=== PATIENT | male | born 1990 | race Caucasian/White ===

== ENCOUNTER 2017-05-05 14:20 | Inpatient (IN) | payer OTHER ==
[~2017-05-05] VITALS: Ht 172.7 cm; Wt 84.4 kg
--- NOTE | 2017-05-05 14:48 | ED PSYCHIATRIC COMPLAINT ---
History of Present Illness General Chief Complaint: Psychiatric Related Complaint Stated Complaint: +SI PT INTOXICATED PER GIRLFRIEND Source: patient Exam Limitations: intoxication Allergies Coded Allergies: No Known Allergies (05/05/17) Reconcile Medications No Known Home Medications Triage Note: PT TO ED + ETOH, "3 BEERS, AND 1 PINT OF BOOZE, ALSO BEEN SHOOTING COCAINE, SMOKING CRACK". WHEN ASKED PT EXPRESSED HE WANTED DETOX. WHEN ASKED PT STATING SI THOUGHTS "WOULD PROBABLY JUST SHOOT UP". Triage Nurses Notes Reviewed? yes Onset: Abrupt Duration: day(s):, constant, continues in ED Timing: recent history Severity: mild, moderate HPI: 27-year-old male comes into emergency room for further evaluation of alcohol and cocaine abuse. Patient is been having suicidal ideation. Clinically intoxicated. Lives with a roommate. Denies only any weapons. Denies any pain currently. He reports that he is in "a very dark place at this time". (John LIPSCOMB,Fortunato) Vital Signs & Intake/Output Vital Signs & Intake/Output Vital Signs Date Time Temp Pulse Resp B/P B/P Pulse O2 O2 Flow FiO2 Mean Ox Delivery Rate 05/06 1623 84 144/67 05/06 1559 84 144/67 05/06 1231 Room Air Room Air 05/06 1217 97.9 82 139/60 05/06 1039 98.1 73 20 116/74 96 Room Air 05/06 1032 98.1 73 20 116/74 05/06 0535 97.1 89 18 118/64 05/06 0535 97.1 89 18 118/64 98 Room Air 05/06 0337 98.2 78 18 113/57 05/06 0336 98.2 78 18 113/57 99 Room Air 05/06 0122 98.3 77 18 110/63 05/06 0121 98.3 77 18 110/63 98 05/05 2319 98.5 83 18 122/86 05/05 2318 98.5 83 18 122/86 97 Room Air 05/05 2251 98.4 76 17 110/64 98 Room Air 05/05 2120 98.2 84 18 104/72 05/058 98.2 84 18 104/72 97 Room Air ED Intake and Output 05/06 0000 05/05 1200 Intake Total 0 Output Total Balance 0 Intake, IV 0 Patient 186 lb Weight Weight Reported by Patient Measurement Method (Cameron Skelton DO) Past History Travel History Traveled to [place] past 21 day No Medical History Any Pertinent Medical History? 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 No (Fortunato Chauhan) Surgical History Surgical History: non-contributory (Sukhjinder Chavira MD) Review of Systems Review of Systems Constitutional: Reports: no symptoms. EENTM: Reports: no symptoms. Respiratory: Reports: no symptoms. Cardiovascular: Reports: no symptoms. GI: Reports: no symptoms. Genitourinary: Reports: no symptoms. Musculoskeletal: Reports: no symptoms. Skin: Reports: no symptoms. Neurological/Psychological: Reports: see HPI. Hematologic/Endocrine: Reports: no symptoms. Immunologic/Allergic: Reports: no symptoms. All Other Systems: Reviewed and Negative (Fortunato Chauhan) Physical Exam Physical Exam General Appearance: well developed/nourished, mild distress, intoxicated Head: atraumatic Eyes: Bilateral: normal appearance. Ears, Nose, Throat: normal ENT inspection, hearing grossly normal Neck: normal inspection Respiratory: no respiratory distress Cardiovascular: regular rate/rhythm Extremities: normal range of motion Neurological/Psychiatric: awake, alert Appearance/Memory/Insight: disheveled, impaired insight Behavoir/Eye Contact/Speech: cooperative Thoughts/Hallucinations: no apparent hallucination Skin: intact, normal color, warm/dry (Fortunato Chauhan) SAD PERSONS SAD PERSONS Response Value Male Sex? yes 1 Depression/Hopelessness? yes 2 Previous Attempts/Psych Care yes 1 Excessive Ethanol/Drug Use? yes 1 Rational Thinking Loss? yes 2 Single//? yes 1 Organized/Serious Attempt yes 2 Social Support? has support 0 Stated Future Intent? yes 2 Total 12 SAD PERSONS Done? yes (Cameron Skelton DO) Progress Differential Diagnosis: dementia, drug intoxication, drug overdose, drug withdrawal, electrolyte abnormality, Depression, anxiety, PTSD, Plan of Care: Orders Procedure Date/time Status Regular Diet 05/06 L Active Vital Signs 05/06 1335 Complete Inpt Psych Teach/Educate 05/06 1335 Active Nutritional Intake, Monitor 05/06 1335 Active Inpt Psych Auricular Acupunctu 05/06 1335 Active Vital Signs 05/06 1150 Active Inpt Psych Teach/Educate 05/06 1150 Active Nutritional Intake, Monitor 05/06 1150 Active Inpt Psych Auricular Acupunctu 05/06 1150 Active Vital Signs 05/06 1146 Complete Teach/Educate 05/06 1146 Complete Pain Treatment and Response 05/06 1146 Complete Nutritional Intake, Monitor 05/06 1146 Complete Isolation 05/06 1146 Complete Intake & Output 05/06 1146 Complete Patient Care Conference 05/06 1146 Complete Activity/Ambulation 05/06 1146 Complete Admit to inpatient psych 05/06 1059 Active Lab Add-on Test 05/06 1050 Active EKG 05/06 1050 Active Pathway - chart 05/06 1049 Active Lab Add-on Test 05/06 1043 Active Patient Data - inpatient psych 05/06 1040 Active Admit to inpatient psych 05/06 1040 Active Vital Signs 05/06 UNK Complete Nursing Misc 05/06 UNK Complete CIWA 05/06 UNK Complete CIWA 05/06 UNK Active Alternative Nursing Therapy 05/06 UNK Complete Activity/Ambulation 05/06 UNK Complete Intake & Output 05/05 1851 Complete TSH REFLEX 05/05 1442 Complete GLYCOSYLATED HGB 05/05 1442 Complete Current Medications Sig/Asher Start time Last Medication Dose Stop Time Status Admin Lorazepam 0.5 MG ONCE ONE 05/09 1800 CAN (Ativan) 05/09 1801 Clonazepam 1 MG TID 05/06 1600 AC 05/06 (Klonopin 1MG Tab) 05/13 1559 1654 Clonazepam 2 MG AT BEDTIME NEED.. 05/06 1515 AC (Klonopin 1MG Tab) 05/13 1514 Clonazepam 1 MG Q2 HRS NEEDED PRN 05/06 1500 AC (Klonopin 1MG Tab) 05/13 1459 Folic Acid 1 MG DAILY 05/06 1049 AC 05/06 (Folic Acid) 05/08 1001 1113 Multivitamins 1 TAB DAILY 05/06 1049 AC 01/11 (Theragran Vitamins) 1113 Nicotine 14 MG DAILY 05/06 1049 AC 05/06 (Nicotine Cq) 1113 Thiamine HCl 100 MG DAILY 05/06 1049 AC 05/06 (Vitamin B1) 05/08 1001 1113 Acetaminophen 650 MG Q6P PRN 05/06 1045 AC (Tylenol) Al Hydroxide/Mg 30 ML Q4-6 PRN PRN 05/06 1045 AC Hydroxide (Maalox Plus) Benztropine Mesylate 1 MG Q6P PRN 05/06 1045 AC (Cogentin 1 MG Tablet) Benztropine Mesylate 1 MG Q6P PRN 05/06 1045 AC (Cogentin) Gabapentin 300 MG Q6P PRN 05/06 1045 AC (Neurontin) Haloperidol 5 MG Q6P PRN 05/06 1045 AC (Haldol) Haloperidol 5 MG Q6P PRN 05/06 1045 AC (Haldol) Lorazepam 2 MG Q6P PRN 05/06 1045 AC (Ativan) Magnesium Hydroxide 30 ML AT BEDTIME PRN 05/06 1045 AC (Milk Of Magnesia) Lorazepam 1 MG ONE PRN 05/05 2330 AC (Ativan) Lorazepam 2 MG ONCE PRN 05/05 2330 AC 05/05 (Ativan) 2326 Hand-Off Endorsed To: Sukhjinder Chavira MD Pending: consult (crisis) (Fortunato Chauhan) Hand-Off Endorsed To: Cameron Skelton DO Endorsed Time: 0700 Pending: other (re-eval) (Sukhjinder Chavira MD) Departure Departure Disposition: STILL A PATIENT Condition: Stable Clinical Impression Primary Impression: Suicidal ideation Secondary Impressions: ETOH abuse Referrals: Leighton Patel MD (PCP/Family) Departure Forms: Customer Survey General Discharge Information Prescriptions: Current Visit Scripts No Known Home Medications (Fortunato Chauhan) PA/PATIENT SUPPORT SPECIALIST Co-Sign Statement Statement: ED Attending supervision documentation- I saw and evaluated the patient. I have also reviewed all the pertinent lab results and diagnostic results. I agree with the findings and the plan of care as documented in the PA's/PATIENT SUPPORT SPECIALIST's documentation. x I have reviewed the ED Record and agree with the PA's/PATIENT SUPPORT SPECIALIST's documentation. [] Additions or exceptions (if any) to the PAs/PATIENT SUPPORT SPECIALIST's note and plan are summarized below: [] (Sukhjinder Chavira MD) Departure Comments 05/06/17 11 AM Patient was signed out to me by Dr. Chavira at 7 AM. He was seen and evaluated by crisis. He is being admitted to Inpatient Psychiatry for further care. The patient states that he does continue to smoke approximately a pack of cigarettes per day. (Cameron Skelton DO) ED Attending Observation Initial Observation Note: I have seen and personally examined SUSY NEGRO on 05/05/17 at 1511. I agree with the current emergency department documentation. The disposition (admission or discharge) is uncertain at this time, he needs a period of observation for the following reason(s): The ED Nurse caring for this patient has been personally informed as to what the patient is being observed for. (Fortunato Chauhan) [] Additions or exceptions (if any) to the PAs/PATIENT SUPPORT SPECIALIST's note and plan are summarized below: [] (Sukhjinder Chavira MD) Departure Comments 05/06/17 11 AM Patient was signed out to me by Dr. Chavira at 7 AM. He was seen and evaluated by crisis. He is being admitted to Inpatient Psychiatry for further care. The patient states that he does continue to smoke approximately a pack of cigarettes per day. (Cameron Skelton DO) ED Attending Observation Initial Observation Note: I have seen and personally examined SUSY NEGRO on 05/05/17 at 1511. I agree with the current emergency department documentation. The disposition (admission or discharge) is uncertain at this time, he needs a period of observation for the following reason(s): The ED Nurse caring for this patient has been personally informed as to what the patient is being observed for. (Fortunato Chauhan)
[2017-05-05 14:51] LABS: ABSOLUTE BASOPHIL COUNT 0 /CUMM (0.0-0.2); ABSOLUTE EOSINOPHIL COUNT 0.1 /CUMM (0.0-0.7); ABSOLUTE GRANULOCYTE CT 6.1 /CUMM (1.4-6.5); ABSOLUTE LYMPH COUNT 3.2 /CUMM (1.2-3.4); ABSOLUTE MONOCYTE COUNT 0.8 /CUMM (0.10-0.60); BASOPHIL % 0.4 % (0.0-2.0); GRANULOCYTE % 59.8 % (42.2-75.2); HEMATOCRIT 46.5 % (42-52); MEAN CORPUSCULAR HGB 29.2 PG (27.0-31.0); MEAN CORPUSCULAR HGB CONC 33.7 G/DL (33.0-37.0); MEAN CORPUSCULAR VOLUME 86.6 FL (80.0-94.0); MEAN PLATELET VOLUME 6.9 FL (7.4-10.4); PLATELET COUNT 305 /CUMM (130-400); RBC DISTRIBUTION WIDTH 14.2 % (11.5-14.5); RED BLOOD CELL CT 5.38 /CUMM (4.70-6.10); WHITE BLOOD CELL COUNT 10.2 /CUMM (4.8-10.8)
--- NOTE | 2017-05-05 17:13 | ED PSY CRISIS COLLATERAL NOTE ---
See Addendum Collateral Note Collateral Note Family/Inform/Harjinder Contacts: Spoke with patient's friend/ex-girlfriend, Kacey, as she brought the patient into the ED. Kacey reports that she has known the pt for 12 years. She reports that they were living together and took a break. She reports that she lives in [place] and he lives in [place]. She reports the patient has relapsed on drugs. He has used Heroin, Cocaine, Crack, Marijuana and ETOH. She is unsure if he is using heroin at this time but knows he is "shooting cocaine" and "smoking crack". She reports the last time he used crack was last night. She reports he drinks 1 pint of whiskey and several six packs per day. She reports that the patient was sober for 17 months until January of this year. She is unsure of a specific trigger to the relapse however does know that his entire sober network has relapsed. She reports he has been in treatment before- detox and rehab- [facility] at one time and had a year of sobreity. She is concerned the patient will kill himself either unintentionally or intentionally. She reports the patient has made statements about wanting to , shoot dope to kill himself, and jump out the window. He has been down and lonely. She is extremely concerned about the patient. She believes if discharged he will kill himself by overdosing on drugs. She reports he recently started seeing a therapist but does not know who. She believes the patient is prescribed vivitrol. Of note, he does not have current legal involvement. He was arrested at 16 for possession of marijuana.
--- NOTE | 2017-05-05 17:22 | ED PSY CRISIS COLLATERAL NOTE ---
Collateral Note Collateral Note Family/Inform/Harjinder Contacts: Alyssia Heredia at the [facility] [phone]/ [phone] would like to partner with us as we come closer to dispositioning this pt i.e. can help begin "getting him drug treatment, that's what he needs". Please contact her after we have a disposition.
[2017-05-05 18:50] VITALS: BP 116/48
[2017-05-05 21:20] VITALS: BP 104/72
[2017-05-05 23:19] VITALS: BP 122/86
[2017-05-06] VITALS (9 sets, daily range): BP systolic 110–144; BP diastolic 57–84
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
--- NOTE | 2017-05-06 18:57 | CPS PROVIDER INIT ASMT PSYCH ---
Psychiatric Admission Bearing Maker's Note Reviewed: Yes Patient Seen and Examined: Yes Identifying Information: Pt is a 27-yo single white male Chief Complaint: comes into emergency room for alcohol, cocaine abuse and SI. Pt was clinically intoxicated when he came in yesterday 05/05 BAL : 150 and UTOX positive for cocaine and cannabis. Reaction to Hospitalization: voluntary History of Present Illness Onset of Illness: He is not working and lives with a roommate, who is absent as he is in detention for violating probation. Pt denies owning any weapons. He denies HI/AH/VH at present , however said this morning he woke up and " swore a piece of paper was moving across the floor." He reports that he is in "a very dark place at this time". Per pt this morning he is not suicidal today but has been shooting cocaine with the intent to over dose. He is worried if he returns home he will " absolutely use." Pt acknowledges he needs help and then rehab. He notes worsening depression the past month, and feeling lonely- unable to identify specific trigger. Per pt report, he and his sober friends from went out and used ( relapsed) together 2 mos ago. Pt has been using shooting cocaine ($200 worth daily), drinking alcohol( six pack and vodka) and smoking cannabis (blunt) daily the past 2 mos. Pt also smokes a pack of cig/daily. He is prescibred vivatrol by Dr. Patel from [facility] [phone]. Denies legal issues at this time. 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, cocaine, sedative use disorders Past Precipitating Factors- if any: substance use - Include inpatient and outpatient treatment Treatment History: only for alcohol and drug use (detoxes and rehabs) History of Suicide Attempts or Gestures denied Substance Abuse History: Alcohol, cocaine, sedative previous opioid and mushrooms and cannabis Allergies: Coded Allergies: No Known Allergies (05/05/17) Home Med List: none - Include any medical condition(s) that may - impact the patient's recovery/remission Past Medical History: physically healthy, may have had consussions Past History Medical History Neurological: NONE EENT: NONE Cardiovascular: RIGHT BBB Respiratory: NONE Gastrointestinal: NONE Hepatic: 11 Renal: NONE Musculoskeletal: NONE Psychiatric: NONE Endocrine: NONE Blood Disorders: NONE Cancer(s): NONE 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 - #1 Recognizing dangerous situations. - #2 Coping Skills. - #3 Basic information about quitting. Status of Tobacco Cessation Counseling: Not Applicable Cessation Med Status Not Applicable Alcohol Screening - ETOH screen POS if BAL >=80 or Audit-C>= M4/F3 Audit-C Score from Diag Assess: 12 Blood Alcohol Level: Laboratory Tests 05/05 1442 Toxicology Serum Alcohol (<10 MG/DL) 150.0 Alcohol Use Screening Results: Pos per Audit C &/or BAL - If ETOH counseling indicated - the following topics are required. - #1 Express concern about the patient's - drinking at unhealthy levels, include informing - of national norms for moderate drinking: - men <= 14 drinks/week, max 4 drinks/occasion - women <= 7 drinks/week, max 3 drinks/occasion - #2 Providing feedback, including linking alcohol to - negative physical effects (liver injury, hypertension) - negative emotional effects (relationship problems and - depression) - negative occupational consequences (reduced work - performance) - #3 Advising the patient to abstain from alcohol or - to drink below national norms for moderate drinking - (as listed above). Status of ETOH Use Counseling: #1, #2 AND #3 Completed. Metabolic Screening - Screen if on a Neuroleptic Medication - Metabolic screening should include: - Blood Pressure, BMI, Glucose or Hgb A1c, & a - Lipid profile from within the past 365 days. Metabolic Screening ([X]) Not Applicable, patient not on a neuroleptic. OR () Patient on a neuroleptic(s) . Enter below results for Hemoglobin A1C, and lipid panel if obtained during the last 365 days. BMI: 28.200 Blood Pressure: 144/67 Laboratory Results From [facility] (If applicable): Exam and Plan Mental Status Examination Ambulation Status: Mobile Appearance: bearded Attitude towards examiner: irritable Psychomotor activity: restless Behavior: no abnormalities Quality of speech: normal Affect: irritable Mood: depressed 7-12/03 Suicidal Ideation: yesterday Homicidal Ideation: none Hallucinations: denied Paranoid/Delusional Material: not now Difficulties with thought organization: none Insight: fair Judgment: depends on sobriety Orientation: oriented x 3 Cognition: intact Memory Function: intact Estimate of intellectual functioning: average Assets/Strengths Patient Identified Assets/Strengths: 27-year-old single white male using cocaine, sedatives and alcohol Impression/Plan Impression and Plan: see plan below - Include all active medical diagnosis that require tx DSM 5 Diagnosis(es): Unspecified depression alcohol use cocaine use sedative use - Initial Tx Plan for Active Psych & Medical Conditions [facility] 15 min checks alcohol detox - Factors that would help patient function - in a less restrictive setting. Factors: abstinence
[2017-05-07] VITALS (9 sets, daily range): BP systolic 123–144; BP diastolic 73–112
--- NOTE | 2017-05-07 11:46 | SOCIAL WORKER PROG NOTE PSYCH ---
Social Work Progress Note Progress Note Papa's significant other Kacey called this morning for an update. She shared some background information about his current relapse and shared concern for him to go to a rehab from here if possible. She doesn't believe him to be suicidal, but stated he said those things under the influence and that he's been really "out of it." He doesn't typically make threats of suicide when sober. Papa was in his room sleeping late morning. Got up when prompted to meet. He feels that he is currently going through withdrawal. He feels sweaty, dizzy, and sick to his stomach. He reports that he was using a pint of alcohol a day and drinking a 6 pack. He was using 1-2 grams of cocain IV and he had been "eating" Klonopin. He can't recall how much. He stated he relapsed about 3 months ago. Stated "I just wanted to get high." Says he has been hanging around a few other guys and all of them have relapsed. He had 17 months clean and sober. He currently has a sponsor in [facility]. He stopped going and hadn't talked to his sponsor since April 10. He stated "I have to go to rehab" or I won't stop. He is currently unemployed due to his substance use. 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 The roommate that he was living with has also been locked up due to violating parole. He hasn't spoken with him. He has typically received residential tx at [facility]. He has been there 3x's with the last time being the Summer of 2015. He hasn't been in any outpatient tx since finishing IOP after that. He would prefer to go to a program that is in [facility] and not in the [facility]. We talked about his options, which are limited due to his current insurance being [employer]. He signed releases for [facility], [facility], [facility], and [facility]. I gave him a list of place he could start calling. I faxed all 4 referrals and reached out to 3 of them and left messages for the admission coordinators.
--- NOTE | 2017-05-07 13:26 | CP SOUTH PROGRESS NOTE PSYCH ---
Psych (Inpt) Progress Note Progress Note Papa's treatment and progress were discussed and the interdisciplinary treatment team this morning Background: 27-year-old single white male who reportedly was brought into the emergency room by his ex-girlfriend because of heavy use of drugs in addition to making statements about wanting to kill himself by intravenous cocaine. The patient has no previous inpatient psychiatric admissions. He did have previous detoxes and rehabilitations. No joana gene psychiatric history. The patient admitted that most of his previous treatments where substance related Mental status examination: The patient is a sporting a long castro. The patient has an air of haughtiness/ arrogance, but he was polite enough and calm during the interviews. He was cooperative and answered questions to the best of his ability. He was alert and oriented. He reported some withdrawal symptoms in the past 24 hours including nausea this morning and soaking sheets wet because of sweating last night. He reported that he is still depressed and anxious but not as bad as yesterday. He denied feeling hopeless about his life. He denied wishing or thinking of suicide today. He denied having violent thoughts or thoughts of homicide today. He denied hallucinations in the past 24 hours. He seems coherent and organized in his thinking. He denied feeling paranoid. He did not seem to be paranoid and there were no delusions observed during the interview. He seemed to have good attention and concentration and no impairment in memory. Assessment: 27-year-old single white male who was admitted because he voiced thoughts of suicide by wanting to inject cocaine. He did acknowledge that he has been using cocaine heavily for almost 1-1/2 months. The patient also has been using the Klonopin but amount was unknown his showing mild withdrawal symptoms today. His plan is to go to residential rehabilitation. Treatment plan update: Continue inpatient psychiatric care. Continue benzo taper. Continue to observe for withdrawals. Continue nursing assessments once a shift Discharge planning per social work Group therapy Milieu therapy Patient will be evaluated daily by a psychiatrist
--- NOTE | 2017-05-07 13:35 | IP INCIDENTAL NOTE PSYCH ---
Incidental Note Notation: Continuation of treatment plan update: The patient's Klonopin will be reduced in the next 24 hours to half a milligram in the morning and 2 mg at bedtime The CIWA coverage will stay the same, the frequency of this he was scoring was reduced to every 4 hours The patient was placed on gabapentin 400 mg four times a day to reduce the risk of seizures, this was explained to the patient. Zoloft or Lexapro or citalopram were discussed with the patient regarding the long-term management of his depression and anxiety, he reported that he would like to think about that but waits for the time being The patient requested that it'll injections but he was told that we don't stock that in the hospital he was offered oral naltrexone but declined at this point
--- NOTE | 2017-05-07 13:54 | History & Physical ---
General Information and HPI History of Present Illness: This young male is admitted to the hospital for the first time because of using too many drugs and suicidal ideation and increased depression. He reports that he has been somewhat isolated had increasingly depressed and his girlfriend thought he was going to commit suicide and brought him to the hospital. He admits to using cocaine intravenously as well as drinking too much alcohol and admits that he is drinking at least 6 beers as well as a quart of whiskey. He has previous history of rehabilitation and claims that he was clean for about 17 months and then went back to drinking and using his drugs with his friends and feeling too depressed. He claims his father of drug abuse in his 50s and his mother is alive in fairly good health. He has 2 siblings were in good health and he himself is single never and no children. 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 Denies: no symptoms. EENTM: Denies: no symptoms. Cardiovascular: Denies: no symptoms. Respiratory: Denies: no symptoms. GI: Denies: no symptoms. Genitourinary: Denies: no symptoms. Musculoskeletal: Reports: muscle pain (complaining of leg pain on lef). Skin: Denies: no symptoms. Neurological/Psychological: Reports: see HPI, depressed, emotional problems. Hematologic/Endocrine: Denies: no symptoms. Exam & Diagnostic Data Last 24 Hrs of Vital Signs/I&O Vital Signs Date Time Temp Pulse Resp B/P B/P Pulse O2 O2 Flow FiO2 Mean Ox Delivery Rate 05/07 1247 85 137/85 05/07 1233 85 137/85 05/07 0808 98.2 81 133/77 05/07 0806 98.2 81 133/77 05/07 0347 71 123/73 05/06 1952 98.1 98 132/84 05/06 1950 98.1 98 132/84 05/06 1623 84 144/67 05/06 1559 84 144 Physical Exam General Appearance Alert, Oriented X3, Cooperative, No Acute Distress Skin No Breakdown, he has one area of erythema on right cheek 1 x 1 cm diameter area HEENT Atraumatic, PERRLA, EOMI, Mucous Membr. moist/pink Neck Supple, No JVD, No thryomegaly, +2 Carotid Pulse wo Bruit Lymphatic Cervical nl Cardiovascular Regular Rate, Normal S1, Normal S2, No Murmurs, Gallops, Rubs Lungs Clear to Auscultation, Normal Air Movement Abdomen Normal Bowel Sounds, Soft, No Tenderness, No Hepatospenomegaly, No Masses Neurological Exam Findings: Normal Gait, Normal Speech, Strength at 5/5 X4 Ext, Normal Tone, Cranial Nerves 3-12 NL, Reflexes 2+ Cranial Nerves II through XII: Within normal limits and intact. Extremities No Clubbing, No Cyanosis, No Edema, Normal Pulses, No Tenderness/ Swelling Assessment/Plan Assessment: This young male is admitted for increasing drug abuse as well as alcohol abuse and increasing depression and suicidal ideation. From medical standpoint he's fairly stable without any acute medical problems at this time. He has some muscle strain on the left side for which we will use Tylenol as needed and a minimal rash on the face and does not need much medication since he claims it comes up when he is using drugs and goes away after he stops it. He'll be seen as needed. As Ranked By This Provider Problem List: 1. Suicidal ideation 2. ETOH abuse Miscellaneous Miscellaneous Documentation Attending Case Discussed With: Ana VILLANUEVA,Roney Primary Care Physician: Leighton Patel MD Patient sees these Specialists none Level of Patient Care: ESA Scherer Attending MD Review Statement Attending Statement Attending MD Statement: examined this patient, reviewed EMR data (avail), discussed with nursing Attending Assessment/Plan: This young male is admitted with alcohol and drug abuse and increasing depression. There is no acute medical problem at this time and he will be seen as needed for any medical reason. We will just use Tylenol for his leg pain as needed is no need for any other stronger medication at this time.
[2017-05-08 07:56] VITALS: BP 128/76
[2017-05-08 07:57] VITALS: BP 128/76
--- NOTE | 2017-05-08 09:06 | CP SOUTH PROGRESS NOTE PSYCH ---
Psych (Inpt) Progress Note Progress Note Include the following elements, when applicable: Involvement in the active treatment of the patient with behavioral observations of the patient and the patient's response to the treatment. Review of the ongoing treatment process in the context of the treatment plan. Indication of how multi-disciplinary staff members are carrying out the treatment plan. Plans for future interventions and recommendations for revision of the treatment plan. Liaison with other physicians/providers. Progress note: Pt reports that he feeling better but still "cocaine crash." He notes increased anxiety and irritability. Pt does not want to take an antideprssant, "I don't want to be on a whole bunch of meds when I leave here." Pt requested private room and make phone calls with family present while they visit for rehab. Request denied as not unit policy to have visitors and pt in unsupervised visits. He became agitated and upset. Denies SI or HI. Current Medications Sig/Asher Start time Last Medication Dose Route Stop Time Status Admin Acetaminophen 650 MG Q6P PRN 05/06 1045 AC PO Al Hydroxide/Mg 30 ML Q4-6 PRN PRN 05/06 1045 AC Hydroxide PO Benztropine Mesylate 1 MG Q6P PRN 05/06 1045 AC PO Benztropine Mesylate 1 MG Q6P PRN 05/06 1045 AC IM Clonazepam 0.5 MG DAILY 05/08 1000 AC 05/08 PO 05/10 0100 0825 Clonazepam 2 MG AT BEDTIME 05/07 2200 AC 05/07 PO 05/14 2159 2138 Clonazepam 1 MG TID 05/06 1600 DC 05/07 PO 05/13 1559 0812 Clonazepam 2 MG AT BEDTIME NEED.. 05/06 1515 DC PO 05/13 1514 Clonazepam 1 MG Q2 HRS NEEDED PRN 05/06 1500 AC PO 05/13 1459 Folic Acid 1 MG DAILY 05/06 1049 AC 05/08 PO 05/08 1001 0822 Gabapentin 600 MG TID 05/08 1400 UNVr PO Gabapentin 400 MG FOUR TIMES A DAY 05/07 1400 DC 05/08 PO 0823 Gabapentin 300 MG Q6P PRN 05/06 1045 AC PO Haloperidol 5 MG Q6P PRN 05/06 1045 AC PO Haloperidol 5 MG Q6P PRN 05/06 1045 AC IM Hydroxyzine HCl 50 MG .[EVERY 8 HOURS ] .. 05/08 0900 UNVr PO Lorazepam 0.5 MG ONCE 05/11 0000 DC PO 05/11 0001 Lorazepam 0.5 MG Q6H 05/10 0000 DC PO 05/10 1801 Lorazepam 1 MG Q6H 05/09 0000 DC PO 05/09 1201 Lorazepam 1.5 MG Q12H 05/08 0600 DC PO 05/08 1801 Lorazepam 1 MG Q12H 05/08 0000 DC PO 05/08 1201 Lorazepam 2 MG Q6P PRN 05/06 1045 AC IM Lorazepam 1 MG ONE PRN 05/05 2330 DC 05/07 PO 1620 Lorazepam 2 MG ONCE PRN 05/05 2330 DC 05/05 PO 2326 Magnesium Hydroxide 30 ML AT BEDTIME PRN 05/06 1045 AC PO Melatonin 5 MG AT BEDTIME PRN 05/08 0900 UNVr PO Multivitamins 1 TAB DAILY 05/06 1049 AC 05/08 PO 0822 Nicotine 14 MG DAILY 05/06 1049 AC 05/08 TOP 0822 Thiamine HCl 100 MG DAILY 05/06 1049 AC 05/08 PO 05/08 1001 0822 Tuberculin PPD 0.1 ML ONCE ONE 05/07 1715 DC 05/07 ID 05/07 1716 2153 Laboratory Tests 05/05 05/05 1730 1442 Chemistry Sodium (137 - 145 mmol/L) 143 Potassium (3.5 - 5.1 mmol/L) 4.2 Chloride (98 - 107 mmol/L) 101 Carbon Dioxide (22 - 30 mmol/L) 24 Anion Gap (5 - 16) 19 H BUN (9 - 20 mg/dL) 16 Creatinine (0.7 - 1.2 mg/dL) 1.0 Estimated GFR (>60 ml/min) > 60 BUN/Creatinine Ratio (7 - 25 %) 16.0 Glucose (65 - 99 mg/dL) 120 H Hemoglobin A1c (4.2 - 5.8 %) 5.3 Calcium (8.4 - 10.2 mg/dL) 9.6 Total Bilirubin (0.2 - 1.3 mg/dL) 0.8 AST (17 - 59 U/L) 34 ALT (21 - 72 U/L) 51 Alkaline Phosphatase (< 127 U/L) 68 Total Protein (6.3 - 8.2 g/dL) 7.6 Albumin (3.5 - 5.0 g/dL) 4.8 Globulin (1.9 - 4.2 gm/dL) 2.8 Albumin/Globulin Ratio (1.1 - 2.2 %) 1.7 TSH &T3 &Free T4 Intrp (0.27 - 4.20 uIU/mL) 1.550 Hematology CBC w Diff NO MAN DIFF REQ WBC (4.8 - 10.8 /CUMM) 10.2 RBC (4.70 - 6.10 /CUMM) 5.38 Hgb (14.0 - 18.0 G/DL) 15.7 Hct (42 - 52 %) 46.5 MCV (80.0 - 94.0 FL) 86.6 MCH (27.0 - 31.0 PG) 29.2 RDW (11.5 - 14.5 %) 14.2 Plt Count (130 - 400 /CUMM) 305 MPV (7.4 - 10.4 FL) 6.9 L Gran % (42.2 - 75.2 %) 59.8 Lymphocytes % (20.5 - 51.1 %) 31.0 Monocytes % (1.7 - 9.3 %) 7.8 Eosinophils % (0 - 5 %) 1.0 Basophils % (0.0 - 2.0 %) 0.4 Absolute Granulocytes (1.4 - 6.5 /CUMM) 6.1 Absolute Lymphocytes (1.2 - 3.4 /CUMM) 3.2 Absolute Monocytes (0.10 - 0.60 /CUMM) 0.8 H Absolute Eosinophils (0.0 - 0.7 /CUMM) 0.1 Absolute Basophils (0.0 - 0.2 /CUMM) 0 PUBS MCHC (33.0 - 37.0 G/DL) 33.7 Toxicology Urine Opiates Screen (>2000 NG/ML) < 100.00 Methadone Screen (>300 NG/ML) < 40 Barbiturate Screen (>200 NG/ML) < 60 Ur Phencyclidine Scrn (>25 NG/ML) < 6.00 Amphetamines Screen (>1000 NG/ML) < 100 U Benzodiazepines Scrn (>200 NG/ML) < 85 Urine Cocaine Screen (>300 NG/ML) > 1000 H Urine Cannabis Screen (>50 NG/ML) > 80.00 H Serum Alcohol (<10 MG/DL) 150.0 Vital Signs Date Time Temp Pulse Resp B/P B/P Pulse O2 O2 Flow FiO2 Mean Ox Delivery Rate 05/08 756 97.6 94 128/76 05/08 755 97.6 94 128/76 05/07 1948 98.9 97 16 134/97 05/07 194 98.9 97 134/97 05/07 1719 83 133/79 05/07 1719 83 133/79 05/07 1606 99 144/112 05/07 1247 85 137/85 05/07 1233 85 137/85 MSE General appearance: fairhygiene and grooming; Attitude: cooperative; Eye contact: appropriate; Movement: + psychomotor agitation; Speech: nl fluency, nl rate/rhythm, nl volume, nl prosody; Mood: "fine" Affect: very irritable, flat, appropriate, constricted, non-labile, congruent; Thought process: linear and goal-directed; Thought content: denied SI or HI, no paranoid ideation; Perception: denied hallucinations- auditory, visual, does not appear to be responding to internal stimuli; I/J: limited A/P: Pt with hx of MDD and PSD tolerating detox (CIWA O). Pt has marked irritability and became agitated when not allowed to make phone calls in private room unsupervised. Redirected but remains upset. -Increase gabapentin to 600mg TID - Added melatonin 5mg for sleep -Encourage integration into the milieu
[2017-05-08 16:04] VITALS: BP 137/76
[2017-05-08 20:27] VITALS: BP 143/77
[2017-05-08 20:30] VITALS: BP 143/77
[2017-05-09] VITALS (7 sets, daily range): BP systolic 109–145; BP diastolic 69–82
--- NOTE | 2017-05-09 13:07 | CP SOUTH PROGRESS NOTE PSYCH ---
Psych (Inpt) Progress Note Progress Note Include the following elements, when applicable: Involvement in the active treatment of the patient with behavioral observations of the patient and the patient's response to the treatment. Review of the ongoing treatment process in the context of the treatment plan. Indication of how multi-disciplinary staff members are carrying out the treatment plan. Plans for future interventions and recommendations for revision of the treatment plan. Liaison with other physicians/providers. Progress Note: Pt upset that limited options for rehab as has no insurance and no money. W[facility] to go to [facility] but cannot afford it. If not going to place he like, "all the other places are dumps," plans to resume substance use. Pt denies SI or HI. More cooperative today. Current Medications Sig/Asher Start time Last Medication Dose Route Stop Time Status Admin Acetaminophen 650 MG Q6P PRN 05/06 1045 AC PO Al Hydroxide/Mg 30 ML Q4-6 PRN PRN 05/06 1045 AC Hydroxide PO Benztropine Mesylate 1 MG Q6P PRN 05/06 1045 AC PO Benztropine Mesylate 1 MG Q6P PRN 05/06 1045 AC IM Clonazepam 0.5 MG DAILY 05/08 1000 AC 05/09 PO 05/10 0100 0828 Clonazepam 2 MG AT BEDTIME 05/07 2200 AC 05/08 PO 05/14 2159 2146 Clonazepam 1 MG Q2 HRS NEEDED PRN 05/06 1500 AC PO 05/13 1459 Gabapentin 600 MG TID 05/08 1400 AC 05/09 PO 0821 Gabapentin 300 MG Q6P PRN 05/06 1045 AC 05/08 PO 1505 Haloperidol 5 MG Q6P PRN 05/06 1045 AC PO Haloperidol 5 MG Q6P PRN 05/06 1045 AC IM Hydrocortisone 1 JESSICA BID 05/08 2200 AC 05/09 EXT 0821 Hydroxyzine HCl 50 MG Q8P PRN 05/08 0900 AC PO Lorazepam 0.5 MG ONCE 05/11 0000 DC PO 05/11 0001 Lorazepam 0.5 MG Q6H 05/10 0000 DC PO 05/10 1801 Lorazepam 1 MG Q6H 05/09 0000 DC PO 05/09 1201 Lorazepam 2 MG Q6P PRN 05/06 1045 AC IM Magnesium Hydroxide 30 ML AT BEDTIME PRN 05/06 1045 AC PO Melatonin 5 MG AT BEDTIME PRN 05/08 0900 AC PO Multivitamins 1 TAB DAILY 05/06 1049 AC 05/09 PO 0820 Nicotine 14 MG DAILY 05/06 1048 05/09 TOP 0821 Vital Signs Date Time Temp Pulse Resp B/P B/P Pulse O2 O2 Flow FiO2 Mean Ox Delivery Rate 05/09 1201 90 145/82 05/09 0803 97.8 87 109/69 05/09 0802 97.7 87 10969 05/08 2030 99.0 88 143/77 05/08 2026 99.0 88 143/77 05/08 1604 88 137/76 05/08 1604 88 137/76 MSE General appearance: fairhygiene and grooming; Attitude: cooperative; Eye contact: appropriate; Movement: + psychomotor agitation; Speech: nl fluency, nl rate/rhythm, nl volume, nl prosody; Mood: "upset" Affect: very irritable, flat, appropriate, constricted, non-labile, congruent; Thought process: linear and goal-directed; Thought content: denied SI or HI, no paranoid ideation; Perception: denied hallucinations- auditory, visual, does not appear to be responding to internal stimuli; I/J: limited A/P: Pt with hx of MDD and PSD tolerating detox (CIWA O). Pt has marked irritability and sense of entitlement. Low investment in treatment for substance use at this time. - COntinue current regimen -Encourage integration into the milieu
[2017-05-10 07:55] VITALS: BP 121/70
--- NOTE | 2017-05-10 11:49 | SOCIAL WORKER PROG NOTE PSYCH ---
Social Work Progress Note Progress Note Received a phone call this morning from Papa's Mother. There was no release in place. She said she just wanted to share her concern about him getting into rehab and the process for how we are helping him. Also received a message from his significant other Kacey about a similar issue. Met with Papa, who had been in bed asleep late in the morning. Asked how his weekend was? He stated that he was feeling a little better, but trying to catch up on all the sleep he has missed. Encouraged him to go to group and reminded him that once he is in rehab he will be very structured. He said he was aware. Talked about the referrals that were made on Wednesday and the phone calls that I had completed on his behalf. He said he had been busy making calls as well. He said he completed a screening with [facility] and is waiting to hear back from them. He also stated he was trying to get into [facility]. We talked about a referral to [facility] and [facility] as places he could possibly stay if needed while waiting for rehab. He is concerned about where they are located due to [place] being the area where he would seek out drugs. I told them the programs are located in the city and it really is up to him to stay clean and motivated to seek support. He was agreeable. He also thought he might be able to stay with his Mom for a week. Overall, Papa is feeling a little agitated with mood lability. He said he got upset over the weekend because he didn't want to do the screening for rehab on the patient phone in front of other visitors and patients. He got upset with the doctor for not letting him use another phone. Received a call from Alison at [facility] stating they felt Papa needed a co- occurring program. Papa was upset and angry about this news. He immediately called his girlfriend, who inturn called me to voice her disappointment and advocate that he get into a good program. I told her we have done several referrals and unfortunately this is the outcome alot of time for folks that have referrals from the psych unit. She advocated that I call [facility] to see if they would change their mind. Riley from the [facility] spoke with Papa briefly for a few minutes about their program, but I am not clear what the outcome of the conversation was and will need to follow up.
[2017-05-10 12:16] VITALS: BP 138/83
--- NOTE | 2017-05-10 15:23 | CP SOUTH PROGRESS NOTE PSYCH ---
Psych (Inpt) Progress Note Progress Note I reviewed the notes of Dr. Teja Tirado MD (covering psychiatrist for the weekend: Wed and Wednesday: May.08 and 2017). Papa's treatment and progress were discussed and the interdisciplinary treatment team this morning (nursing staff, social work, group therapists, and activity therapist, and psychiatrist) Mental status examination: The patient continues to exhibit an air of haughtiness/arrogance, he was polite enough and calm during the interviews. He was cooperative, alert and oriented. He denied withdrawal symptoms. He reported that he is less depressed and less anxious. He denied feeling hopeless about his life, denied wishing or thinking of suicide today. He denied violent thoughts or thoughts of homicide. He denied hallucinations and seems coherent and organized in his thinking. He denied feeling paranoid, did not seem to be paranoid and there were no delusions observed during the interview. He seemed to have good attention and concentration and no impairment in memory. Assessment: Papa is a 27-year-old single White male who was admitted because he voiced thoughts of suicide by wanting to inject self with cocaine. He did acknowledge that he has been using cocaine heavily for almost 1-1/2 months. The patient also has been using the Klonopin but amount was unknown his showing mild withdrawal symptoms today. His plan is to go to residential rehabilitation. Treatment plan update: Continue inpatient psychiatric care. Reduce Klonopin to 1.5 mg at bedtime Increase Gabapentin to 600 mg twice during daytime and 1000 mg at bedtime Continue nursing assessments once a shift Social Work to continue discharge planning Group therapists to continue group therapy Continue Milieu therapy Patient will be evaluated daily by a psychiatrist
[2017-05-10 15:57] VITALS: BP 144/77
--- NOTE | 2017-05-10 16:15 | SOCIAL WORKER PROG NOTE PSYCH ---
Social Work Progress Note Progress Note Met with Papa and obtained substance abuse history. He had 17 months sober/ clean relapsed 2 months ago - drinking 6 pack of beer and piont of Vodka daily, 1-2 grams cocaine daily, 1/8th of cannibis daily. He has been at [facility] 3x - 2013, 2014, 2016. IOP - [facility] 2x (2013/2014), [facility] 2016. He stated after [facility] (2015) saw a therapist 4-5x at [facility]. 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 Papa wants a SA rehab, does not feel he can go to an IOP. "I need a reset" he stated, and "be around a community of people to stay sober/clean." Papa asked a therapist, Alyssia Heredia LCSW of [facility] ph#[phone] to have them "help us"get him into a rehab. Phoned Ms. Corrales she stated she doesn 't feel Papa has any MH issues, that he was under the influence of drugs/ alcohol when stated he would kill himself. She was strongly advocating for him to go to a SA rehab, not a Dual program. She said she called [facility] and they may "consider" Papa if primary diagnosis is changed. Explained to Ms. Heredia appreciate her feedback but cannot change anything patient has reported in ED. Suggested will do the best we can to get him into appropriate level of care Dual or SA rehab. She has not treated patient in quite a while - not since 2016 per patient. Natalie Giovanna stated she was asked to become involved in treatment by the patient and his family. MERLENE HUITRON - phoned and [facility] approved patient for 3.5 level of care (3-5 month long-term). [facility] Jewell, [facility] [employer] [facility] felt since patient had (3) 30day rehabs in past 3yrs, may need a long-term. INformed Papa about AUTH for 3.5 LOC he prefers only [facility]. Papa's mood is labile, aggitated about nursing setting limits. He was pacing and swearing, responding to redirection to nursing and myself.
[2017-05-10 19:42] VITALS: BP 149/80
[2017-05-11 07:32] VITALS: BP 120/72
--- NOTE | 2017-05-11 10:42 | SOCIAL WORKER PROG NOTE PSYCH ---
Social Work Progress Note Progress Note Completed the screening for Papa at [facility], as long as he can return to his apartment/rehab he can be considered for placement. He will need a PPD. They will have beds at the latter part of the week. [facility], will re fax today. Left a voicemail with admissions for [facility] to see if we could complete a screening.
[2017-05-11 12:21] VITALS: BP 113/73
--- NOTE | 2017-05-11 12:31 | CP SOUTH PROGRESS NOTE PSYCH ---
Psych (Inpt) Progress Note Progress Note Papa's treatment and progress were discussed and the interdisciplinary treatment team this morning (Nursing staff, social work, group therapists, activity therapist, and psychiatrists) Mental status examination: Papa reported that he is too tired at 12:30 He was alert and oriented. He denied withdrawal symptoms, reported that he is less depressed and less anxious. He denied feeling hopeless about his life, denied wishing or thinking of suicide today. He denied violent thoughts or thoughts of homicide. He denied hallucinations and seems coherent and organized in his thinking. He denied feeling paranoid, did not seem to be paranoid and there were no delusions observed during the interview. He seemed to have good attention and concentration and no impairment in memory. Assessment: Papa is a 27-year-old single White male who was admitted because he voiced thoughts of suicide by wanting to inject self with cocaine. He did acknowledge that he has been using cocaine heavily for almost 1-1/2 months. The patient also has been using the Klonopin but amount was unknown his showing mild withdrawal symptoms today. His plan is to go to residential rehabilitation. Treatment plan update: Continue inpatient psychiatric care. Reduce Klonopin to 1 mg at bedtime Continue Gabapentin 600 mg twice during daytime and 1000 mg at bedtime Continue nursing assessments once a shift Social Work to continue discharge planning Group therapists to continue group therapy Continue Milieu therapy Patient will be evaluated daily by a psychiatrist
[2017-05-11 16:10] VITALS: BP 145/86
--- NOTE | 2017-05-11 17:10 | SOCIAL WORKER PROG NOTE PSYCH ---
Social Work Progress Note Progress Note Papa was encouraged to reach out to [facility] early this morning. He said he was definetely going to do that. I called [facility] and spoke with Alison. She stated they were concerned about his statement made in crisis about overdosing on cocaine. I shared that I felt his risk was minimal and that family doesn't believe him to be suicidal when not under the influence. I asked if a letter from Dr. Dyer would help in regards to risk? She said that we could fax her a letter and she would discuss things with the team and get back to me. Woke Papa from a nap this afternoon. I offered to have a phone conference with him and his Mom, since Mom was looking for an update. He was fine with that. We attempted to call, but got her voicemail. I left her a message. Papa shared that he got angry last night with Todd (nurse) for how he felt Todd presented himself and took away the remote to the TV while they were listening to [place] (music). Papa said this really upset him and he did react. Encouraged him to keep calm and not to get riled up while he is here. He stated he was trying to do that. Feels very fatigued today. Having cravings to use all the time. I shared that a tentative d/c date is . I again reiterated that he may not be able to go directly to a rehab door to door from here. He is not very open to the idea of going to the [facility] or [facility]. I strongly encouraged him to consider those options. He thinks he may be able to stay with his Mom, but he hasn't asked her that yet. He chose not to do the screening with [facility] today, stating he is not going to [place]. I again reiterated that he is to focus on the in and not the city where he is residing at the time.
[2017-05-11 21:34] VITALS: BP 133/72
[2017-05-12 07:58] VITALS: BP 141/72
--- NOTE | 2017-05-12 10:55 | SOCIAL WORKER PROG NOTE PSYCH ---
See Addendum Social Work Progress Note Progress Note ENTERED [facility] ONLINE REVIEW FOR CONT. STAY. BEGINNING ON 05/10/16. TC - MISAEL [facility] - TO INQUIRE ABOUT REVIEW ENTERED ON WED. 04/30 DID NOT SHOW IN SYSTEM. ASKED FOR CALL BACK ON DAYS 05/10, 05/11. WILL CALL HER AGAIN TO FIND OUT OF DAYS WILL BE AUTHORIZED OR IF WILL NEED TO APPEAL 05/10, 05/11.
--- NOTE | 2017-05-12 11:59 | CP SOUTH PROGRESS NOTE PSYCH ---
Psych (Inpt) Progress Note Progress Note Papa's treatment and progress were discussed and the interdisciplinary treatment team this morning (Nursing staff, Social work stff, Group therapists, activity therapist, and Psychiatrist) Mental status examination: Papa reported that he is doing better today, he had to take a call from [facility], he was alert and oriented. He denied withdrawal symptoms, reported that he is anxious but not depressed, he denied feeling hopeless, and denied wishing or thinking of suicide. He denied violent thoughts or thoughts of homicide. He denied hallucinations. he was coherent and organized in his thinking. He denied feeling paranoid, did not seem to be paranoid and there were no delusions during the interview. He seemed to have good attention and concentration and no impairment in memory. Assessment: Papa is a 27-year-old single White male who was admitted to [facility]- inpatient psychiatry because he voiced thoughts of suicide by wanting to inject self with cocaine. He did acknowledge that he has been using cocaine heavily for almost 1.5 months. The patient also has been using the Klonopin but amount was unknown. His plan is to go to residential rehabilitation. Treatment plan update: Continue inpatient psychiatric care. Reduce Klonopin to 1 mg at bedtime Continue Gabapentin 600 mg twice during daytime and 1000 mg at bedtime Continue nursing assessments once a shift Social Work to continue discharge planning Group therapists to continue group therapy Continue Milieu therapy Patient will be evaluated daily by a psychiatrist
[2017-05-12 12:26] VITALS: BP 142/88
[2017-05-12 16:04] VITALS: BP 140/64
--- NOTE | 2017-05-12 16:05 | SOCIAL WORKER PROG NOTE PSYCH ---
Social Work Progress Note Progress Note Mary Alice from [facility] left a voicemail, they have denied coverage for 2 days, due to staff not compelting the review at the time it was due, however they covered today and tomorrow. A family meeting is scheduled after a conference call with the pt's mother, Lyndsay Flannery and Carol Kimbrough for 10:15am his girlfriend will be attending as well.
--- NOTE | 2017-05-12 16:41 | SOCIAL WORKER PROG NOTE PSYCH ---
Social Work Progress Note Progress Note 1. [facility]: Manager [employer] completed application for [facility] and confirmed that all clinical information required had been received. Ruth Ann Kamara stated that the information would be reviewed and a decision would be made as to whether Papa would be put on the waitlist. She stated that if he were to go on the waitlist, he would be number 16 on the list and that his wait time would be about 30 days. After speaking with Ruth Ann, a fax was received that stated that [facility] would like a letter from Dr. Perez stating that Papa is not at risk of hurting himself. No action was taken yet to obtain such a letter as [facility] is being pursued as a treatment option which will be detailed below. 2. [facility]: Manager Financial spoke with Sylvester at [facility] in [place]. Manager Financial did a screening for Papa. A bed is most likely going to be open tomorrow (05/13/17). The person at [facility] stated that she would taken Papa, but that she needed a new Discharge Agreement plan stating that if Papa were to remain at [facility] at the end of 2 weeks, that he would agree to go to a retirement or return to his apartment or make other living arrangements while waiting for a residential rehab bed. Additionally she stated that Jhoan would need to make arrangements for Papa to attend [facility] while at [facility]. 3. [facility]: [facility] who informed him that after reviewing the referral that they felt that he should pursue a different program. 4. Manager Financial informed Papa that & would most likely have a bed open tomorrow, and that he could go there to wait for a rehab bed. While Papa and this automotive service writer were speaking, he received a phone call from his mother or girlfriend informing him that [facility] had a bed open. Papa asked this automotive service writer to please send a referral into [facility]. 5. [facility]: Manager Financial called Carrie Wallace at [facility] to inquire about the possible available bed. Carrie said that she had been in contact with the [facility] and that she would have a bed possibly tomorrow. Manager Financial faxed over clinical information. Many attempts were made, but the fax system at [facility] was down. As such, Carrie referred automotive service writer to the clincial director of adult residential services, Joie. She took clinical information down about Papa as the faxed clincial had not gone through. She said that she would most likely have a bed on Wednesday. UPDATE: At 5:00PM, [facility] called with an opening tomorrow (05/13/17) at 1pm. After speaking with Che Ryder, and Papa, the decision was made to take the bed. Manager Financial gave Guillermina at [facility] Papa's basic information (diagnoses, meds, demographics, insurance). Papa spoke with his girlfriend who will provide him with a ride to [facility] tomorrow. [facility] will need to be contacted tomorrow to switch Papa's level of care from a 3.7 back to a 3.5.
--- NOTE | 2017-05-12 19:01 | SOCIAL WORKER PROG NOTE PSYCH ---
Social Work Progress Note Progress Note Called [facility] and received AUTH for 3.7 (SA rehab) and 3.7RE (dual rehab). Clinician stated if patient gets into a long-term - [facility] - then can call [facility] back and switch back AUTH to a 3.5 (long-term 3-5month program). Reason switched auth from Long-term to rehab was informed by Mary Gonzalez that patient was rejected from [facility] because he didn't have a 3.7 AUTH on file. TC - Called [facility] - Spoke with [facility] informed them that AUTH is on file for 3/7 and 3.7RE - patient has no SI, which resolved once he was sober (ETOH). They will review clinical and call back.
[2017-05-12 19:28] VITALS: BP 143/90
[2017-05-13 07:53] VITALS: BP 136/79
[2017-05-13] MEDS ORDERED: GABAPENTIN300 M2 PO (08:18)
[2017-05-13] MEDS ORDERED: NICOTINE GUM4 MG PO (08:26)
--- NOTE | 2017-05-13 08:30 | SOCIAL WORKER PROG NOTE PSYCH ---
Social Work Progress Note Progress Note Spoke with Papa this morning about his d/c plan to leave for [place] today. He said Kacey is picking him up at 9am. I questioned the family meeting that was scheduled yesterday and if he still wanted to have the meeting? He said he did not wish to have a family meeting with his Mom or Kacey and that he just wants to leave and not make a big deal of things. He did not feel supported from the patient advocates meeting yesterday and doesn't like the way the Clinical Nurse Director on the unit is interacting with him. He said he doesn't want to leave with anyone having hard feelings. I asked him if he told his Mom and Kacey that he didn't want a meeting? He said that he has spoken with them. I called [place] admissions this morning and confirmed his admission and how many days worth of meds he should bring with him. Guillermina said he should have at least 30 days worth due to there being no prescriber there. There was a message left by Che Bettencourt (Mother) indicating that they would be picking Papa up at 9am and that they would be running some errands and getting him to [place]. She was thankful for Juliette's ([facility] sales intern) help yesterday.
--- NOTE | 2017-05-13 08:47 | DISCHARGE SUMMARY REPORT-PSYCH ---
Visit Information Visit Dates/Diagnosis' Admission Date: 05/06/17 Discharge Date: 05/13/17 Reason for Admission: Papa presented to the emergency room because of alcohol and cocaine use and voicing thoughts of suicide. Reportedly he was intoxicated at the time of his arrival to the emergency room with a blood alcohol level of 150 and the toxicology positive for cocaine and cannabis reportedly mentioned something about thinking about injecting himself with cocaine. Psy Discharge Primary Diag: General Psychiatric Psy Discharge Secondary Diag: Polysubstance Dependence Hospital Course Significant Lab Findings: Complete blood count was essentially normal and the chemistry did not show any significant abnormalities he showed excellent liver function tests Toxicology was positive for cocaine and cannabis and alcohol Course Complications: Papa did not have any complications during his stay on the inpatient psychiatric unit Consultations: Papa had a history and physical examination done by the dairy bar manager when he was on Inpatient Psychiatry the physical examination was performed by Dr. Gelacio Rivera MD on 05/07/2017. The dairy bar manager noted that the patient had a minor rash on the face and hydrocodone hydrocortisone cream was ordered for that. The patient was noted to be physically healthy without any major medical issues that needed to be attended to when he was on Inpatient Psychiatry. Allergies: Coded Allergies: No Known Allergies (05/05/17) Hospital Course/TX Response: Papa presented to the emergency department on the but he was intoxicated and was kept overnight before he was evaluated by psychiatry at which point it was determined that he needed admission and admission because of the statements that he made about injecting himself with cocaine. I evaluated the patient on May 06. He reported that he has been staying with her roommate about his former roommate has been incarcerated for violating the probation. The patient does deny that he was serious about suicide and he made the statements in order to get help. The patient reported that he needs rehabilitation and was pretty picky about which rehabs with he would he would go to another topic of his list was [facility] which he has been to before. On the unit the patient was arrogant and haughty/condescending but did not pose an safety risk he was not assaultive, he was a nuisance, but he wasn't agitated the or threatening to the staff. There was no withdrawal symptoms reported and no withdrawal signs observed he was placed on Klonopin taper while he was on the inpatient unit. Throughout his stay he denied that he has any thoughts of suicide and he denied that he has any violent thoughts or thoughts of homicide. Throughout his stay on the unit he did not show any objective evidence of psychosis and he denied having any hallucinations or delusions or paranoia. Throughout his stay on the unit he did not feel that he was depressed or anxious or needed any medications except for those to manage the detoxification from the sedative hypnotics. Gabapentin was used for that purpose with her regular doses scheduled as well as when necessary's schedule for any breakthrough symptoms or signs of sedative withdrawal There were a lot of heightened emotions by patient's his mother and his ex- girlfriend/friend They felt that the staff including nursing and social work was not attentive to the patient's needs and they felt that we were in doing our best to get him to a rehabilitation (specific kinds of rehabs) as the patient had an air of superiority against thought certain rehabs in [place] are not good enough for him. The staff at claimed that the mother and the ex-girlfriend/friend were making excessive number of calls and very demanding. The patient reported that he feels that the staff where exaggerating and there were evident as many calls as they claimed there was. Fortunately the patient was accepted into a short rehabilitation on the morning of May 13 and he informed me that his ex-girlfriend/friend was going to pick him up and take him there Condition upon discharge: BP 136/79 mmHg, Pulse 75/min, Temp. 97.3 degrees Fahrenheit Papa told me he has a bed available at [facility] today and that his ex- girlfriend/friend is picking him up at 9:00 AM He seemed to be in good spirits He denied withdrawal symptoms; denied feeling depressed, and denied feeling anxious He seemed very excited about the news and looking forward to transfer to [facility] Papa reported he does not feel hopeless, and denied wishing or thinking of suicide. He denied violent thoughts or thoughts of homicide. He denied hallucinations; he was coherent, denied feeling paranoid, did not seem to be paranoid and there were no delusions. He seemed to have good attention and concentration and no impairment in memory. Assessment: Papa is a 27-year-old single White male who was admitted to [facility]- inpatient psychiatry because he said he was thinking of suicide by injecting himself with cocaine. He did acknowledge that he has been using cocaine heavily for almost 1.5 months. He also said he was using Klonopin but amount was unknown. His plan is to go to residential rehabilitation. On the inpatient unit , he was arrogant and condescending but did not pose a safety risk. Treatment Plan Update: Discharge to [facility] Discharge Medications: Gabapentin 600 mg in AM, 600 mg in afternoon and 1200 mg at bedtime Nicotine gum 4 mg every 2 hours if needed for nicotine replacement Discharge HBIPS - Tobacco Use Treatment Offered Post DC Medications Offered: Script Given-See Med List Post DC Tobacco Treatment Plan: Other Tobacco Tx Pgm Program Appt Date: 05/13/17 Program Appt Time: 0900 - EtOH/Drug Use D/O Treatment Offered Post DC Medications Offered: Script Given-See Med List Post DC EtOH/SubAbuse [place] Plan: Other SubAbuse/Dual Pgm Program Appt Date: 05/13/17 Program Appt Time: 0900 Metabolic Screening - Screen if on a Neuroleptic Medication - Metabolic screening should include: - Blood Pressure, BMI, Glucose or Hgb A1c, & a - Lipid profile from within the past 365 days. Metabolic Screening Not Applicable, patient not on a neuroleptic. Discharge Instructions General Discharge Information Multiple Neuroleptics: Not Applicable Discharge Diet Regular Discharge Activity Normal DC Disposition: [facility] Referrals Ordered Referrals Provider Referral 05/13/17 For Groups: [[facility]] [facility] [place] [id number] Prescriptions Start taking the following new medications: Gabapentin (Gabapentin) 300 MG CAPSULE 600 Milligram ORAL SEE INSTRUCTIONS Qty = 120 No Refills Instructions: 1 tab in the morning, 1 tablet in the afternoon and 2 tablets at bedtime Comments: Last Taken:05/13/17 Time:0800 Nicotine Polacrilex (Nicotine Gum) 4 MG GUM 4 Milligram ORAL EVERY 2 HOURS NEEDED as needed for nicotine cravings Qty = 90 No Refills Comments: Last Taken:TO START AT HOME Time: Copies To: [facility]
--- NOTE | 2017-05-13 10:00 | SOCIAL WORKER PROG NOTE PSYCH ---
Social Work Progress Note Faxed Referral(s) Referred To: [facility] Transition of Care Documents sent: Health Summary Faxed to: [facility] Fax #: [phone] Faxed by: Juliette Walters Date faxed: 05/13/17 Time Faxed: [phone]
--- NOTE | 2017-05-14 13:16 | OP PSYCH INCIDENTAL NOTE ---
OPS Incidental Note Details: 05/14/17 - 9am- spoke with Mary Alice/Gwendolyn she stated denial of 05/10/17 and 05/11/17 will be upheld. Asked since 05/10 was a holiday and [facility] was closed, if she would consider reversing 05/10, she denied this request. Stated we could appeal #[phone]. 05/14/17 - [facility] Appeal line #[phone] - left voicemail regarding clinical on patient for 05/10, 05/11 and presenting clinical in ED. Requested reversal of denial for 05/10 and 05/11, since [facility] was closed on Wed. 05/10 and reviews could not have been approved for that day anyway. Also, stated patient required continued stay. Asked for call back to [phone] or [phone] with result.
--- NOTE | 2017-05-17 09:58 | SOCIAL WORKER PROG NOTE PSYCH ---
Social Work Progress Note Progress Note Filed [facility] Appeal regarding denial for coverage of 05/10 and 05/11. Spoke with Abdoulaye Johnson ([phone]) at [facility] appeals dept. on 05/17/17, he stated he will notify us within 7-10 business days of result. He will mail a letter and send a Fax to Che Ryder LCSW on [employer] with outcome of appeal. Alyssia Palmer LCSW, notified as well.
== END 2017-05-13 09:15 | DRG 751 ==
LOC: ERH 14:20 → ERHI 05-06 10:59 → CP SOUTH 05-06 10:59 → ENRESERV 05-06 23:59 → CP SOUTH 05-07 10:25
PROVIDERS: Physician Assistant Medical
DX: F32.2 Major depressive disorder, single episode, severe without psychotic features (principal); F19.90 Other psychoactive substance use, unspecified, uncomplicated
CPT/HCPCS: 80307; 93005; 93010; G0480; J3490